=== PATIENT | male | born 2000 | race Caucasian/White ===

== ENCOUNTER → 2020-01-03 | Day surgery (SDC) | payer BC ==
[~2020-01-03] MED LIST: DICYCLOMINE HCL10 MG PO; GLUCAGON FOR INJ 1 MG VIAL ONE; HYOSCYAMINE 0.125 MG TAB ONE; IMODIUM MULTI-1 EACH PO; METOCLOPRAMIDE HCL 10 MG/2ML VIAL ONE; PROPOFOL IV EMULSION 10 MG/ML 20 ML VIAL ONE
[2020-01-03 13:58] VITALS: BP 112/60
[2020-01-03 14:16] LABS: WBC,FECAL (FECAL LACTOFERRIN) NEGATIVE (NEGATIVE)
--- NOTE | 2020-01-03 15:56 | Operative Report ---
DATE OF PROCEDURE: 01/03/2020 SURGEON: Luis A Rodríguez MD PROCEDURES: EGD with biopsies and a colonoscopy with biopsies. INDICATIONS FOR EGD: Upper abdominal pain. INDICATIONS FOR COLONOSCOPY: Diarrhea, weight loss. MEDICATIONS: The patient was done under MAC, please see anesthesiologist's note. PROCEDURE IN DETAIL: With the patient in left lateral decubitus position, the flexible fiberoptic Olympus gastroscope was inserted into the esophagus with ease and advanced to the distal esophagus. There was some patchy erythema noted. The scope was then advanced with ease into the stomach, mucosa overlying the antrum and the body revealed some diffuse erythema, low-grade to moderate edema, and biopsies were obtained, and sent to stain for H. pylori. Minute ulcers were noted in the proximal body along the greater curvature without active bleeding and those were biopsied. The pylorus was of normal contour and shape, it was intubated with ease and the scope was advanced all the way to the second portion of the duodenum. The scope was then withdrawn slowly, mucosa overlying the proximal second portion and the duodenal bulb appeared to be within normal limits. Biopsies were obtained to rule out sprue. The scope was then withdrawn back into the stomach and retroflexed, mucosa overlying the fundus and cardia appeared to be within normal limits. The scope was then straightened out, it was subsequently withdrawn. On the way out, a minute nodule was noted at the GE junction, that was biopsied. The patient tolerated the procedure well. IMPRESSION: 1. Distal esophagitis, mild. 2. Minute nodule at GE junction, biopsied. 3. Gastritis, biopsied, biopsies sent to stain for H. pylori. 4. Gastric ulcers, multiple, minute, proximal body, biopsied. 5. Rule out sprue. PLAN: 1. Follow up histology. 2. Initiate Protonix 40 mg one p.o. q.a.m. a.c. DESCRIPTION OF PROCEDURE: The patient was then turned around and after adequate lubrication of the anal canal, a flexible fiberoptic Olympus colonoscope was inserted into the rectum with ease and advanced all the way to the distal descending colon. The prep overall was poor and so visualization was very limited. The mucosa overlying the distal sigmoid colon and rectum showed some mild inflammatory changes with biopsies were obtained. The scope was then retroflexed into the distal rectum and it appeared to be within normal limits. The scope was then straightened out, it was subsequently withdrawn after securing an adequate stool specimen, that was sent for the appropriate stool studies. The patient tolerated the procedure well. IMPRESSION: 1. Colonoscopy to distal ascending colon. Poor prep with large amount of retained fecal material. 2. Proctosigmoiditis, mild, biopsied. PLAN: 1. Follow up histology. 2. Follow up stool studies. 3. Continue Bentyl 10 mg one p.o. t.i.d. 4. Add Align one p.o. daily. Luis A Rodríguez MD [facility] [place] /[id number]
[2020-01-04 11:40] LABS: C DIFFICILE TOXIN A&B AMP PROB NEGATIVE (NEGATIVE)
== END | disposition home or self-care (01) ==
LOC: OR 10:48
PROVIDERS: ATTEND Internal Medicine Gastroenterology
DX: K21.00 Gastro-esophageal reflux disease with esophagitis, without bleeding (principal); K29.70 Gastritis, unspecified, without bleeding; K25.9 Gastric ulcer, unspecified as acute or chronic, without hemorrhage or perforation; K63.89 Other specified diseases of intestine; R63.4 Abnormal weight loss; F41.9 Anxiety disorder, unspecified; Z01.812 Encounter for preprocedural laboratory examination; Z20.828 Contact with and (suspected) exposure to other viral communicable diseases
CPT/HCPCS: 43239; 45380; 83630; 83993; 87045; 87177; 87328; 87493; J1610; J2704; J2765; U0002; 45378